=== PATIENT | male | born 2000 | race Caucasian/White ===

== ENCOUNTER 2019-09-28 01:27 | Emergency (ER) | payer BC ==
[~2019-09-28] VITALS: Ht 190.5 cm; Wt 86.4 kg
[2019-09-28 01:37] VITALS: TEMP 97.9
[2019-09-28 02:01] LABS: BASO % 0.3 % (0.0-2.0); EOS # 0.2 (0.0-0.7); EOS % 1.4 % (0-4.0); GRAN # 11.7 (1.4-6.5); GRAN % 88.6 % (42.2-75.2); HEMATOCRIT 52.6 % (42.0-52.0); HEMOGLOBIN 18.4 g/dl (13.5-18.0); LYMPH # 0.4 (1.2-3.4); LYMPH % 2.9 % (20.0-51.0); MEAN CELL VOLUME 83 fl (80.0-100.0); MEAN CORPUSCULAR HEMOGLOBIN 29 pg (27.0-31.0); MEAN CORPUSCULAR HGB CONC 35 g/dl (33.0-37.0); MEAN PLATELET VOLUME 9.9 fl (7.4-10.4); MONO # 0.9 (0.1-0.6); MONO % 6.5 % (1.7-9.3); PLATELET COUNT 201 K/mm3 (130-400); RED BLOOD COUNT 6.32 M/mm3 (4.20-5.60); REDCELL DISTRIBUTION WIDTH-CV 12.7 % (11.5-14.5)
[2019-09-28 02:08] LABS: ALANINE AMINOTRANSFERASE 23 U/L (21-72); ALBUMIN 5.4 gm/dL (3.5-5.0); ALKALINE PHOSPHATASE 99 U/L (50-136); ANION GAP 16 mmol/L (7-16); AST,SGOT 31 U/L (15-37); BILIRUBIN,TOTAL 1.6 mg/dL (0.0-1.0); BLOOD UREA NITROGEN 18 mg/dL (9-20); CALCIUM 10.2 mg/dL (8.4-10.2); CARBON DIOXIDE 21 mmol/L (22-30); CHLORIDE 104 mmol/L (98-107); CREATININE, serum 1.04 (0.66-1.25); GLUCOSE 119 mg/dL (74-106); LIPASE 86 U/L (23-300); POTASSIUM 4.1 mmol/L (3.4-5.0); SODIUM 141 mmol/L (137-145); TOTAL PROTEIN 9.5 gm/dL (6.4-8.2)
[2019-09-28 02:10] LABS: C-REACTIVE PROTEIN < 0.5 mg/dL (0.0-0.9)
[2019-09-28] MEDS ORDERED: PHENERGAN 25 TA25 MG PO (03:02)
[2019-09-28 04:01] VITALS: BP 143/70; PULSE 93
== END 2019-09-28 04:01 | disposition home or self-care (01) ==
LOC: COL.ER 01:27
PROVIDERS: Nurse Practitioner
DX: R19.7 Diarrhea, unspecified (principal); R11.10 Vomiting, unspecified
CPT/HCPCS: J2405; J2550; J7030